=== PATIENT | female | born 1970 | race Caucasian/White ===

== ENCOUNTER → 2019-08-23 09:01 | Outpatient (CLI) | payer SELFPAY ==
--- NOTE | 2019-08-22 15:15 | EMB_PTH ---
PATIENT: DEMOND STEIN LOC: [facility] U#:[id number] AGE/SX: 54/F ROOM: RE08/23/[address]: Dr. Wojciech Dubon MD : 1970 BED: DIS: SPEC #: [id number] RECD: 08/23/19 08:54 STATUS: MARA FANNIE #: [id number] ABDULAZIZ: 08/22/19 15:[address]: Wojciech Dubon DEPT: SURGICAL PATHOLOGY RECD BY: Poli Enriquez Tissues: Endometrium, NOS Procedures: Surgery Specimen Level IV HEADER OPERATION: Endometrial biopsy PRE-OP DIAGNOSIS: N92.6 TISSUE SUBMITTED: Endometrial biopsy MICROSCOPIC DIAGNOSIS Endometrium, biopsy: Strips of benign superficial endometrium and endocervix. AM:ayaan 08/24/19 MICROSCOPIC DESCRIPTION Slides are reviewed. GROSS DESCRIPTION Received in fixative is one container labeled with the patient's name and designated EM biopsy. The specimen consists of multiple fragments of hemorrhagic soft tissue mixed with mendoza mucoid tissue that in aggregate measure 3 x 2.5 x 0.3 cm. The specimen is totally submitted in one cassette. / SJ:rg 08/23/19 TC:5 CPT: 29291
[2019-08-25 20:29] LABS: HPV Reflexed? NOT INDICATED
== END ==
PROVIDERS: Referring Provider Obstetrics & Gynecology; Visit Provider Obstetrics & Gynecology
DX: N92.6 Irregular menstruation, unspecified (principal); Z12.4 Encounter for screening for malignant neoplasm of cervix
CPT/HCPCS: 88175; 88305; G0145

== ENCOUNTER 2020-03-04 08:54 | Day surgery (SDC) | payer SELFPAY, OTHER ==
[2020-02-29 17:15] LABS: Hematocrit 29.2 % (37-47); Hemoglobin 8.8 g/dL (12.0-15.0); Mean Corp Hgb Conc 30.1 g/dL (32-36); Mean Corpuscular Hgb 28.5 pg (27.0-32.0); Mean Corpuscular Volume 94.5 fL (81-99); Mean Platelet Vol. 8.5 fl (6.2-12.0); Platelet Count 293 K/mm3 (150-450); RBC Distribution Width CV 16.6 % (11.6-14.6); RBC Distribution Width SD 54.5 fl (35.1-43.9); Red Blood Count 3.09 M/mm3 (4.2-5.4)
[2020-02-29 17:42] LABS: Creatinine, Serum 0.79 mg/dL (0.55-1.02); EST Glomerular Filtration Rate 81 mL/min (>60); Est Glom Filt Rate - Afr Amer 98 mL/min (>60)
[2020-02-29 17:43] LABS: International Normalized Ratio 1.1; Prothrombin Time (Protime)PT. 13.7 SECONDS (11.7-14.9)
[2020-02-29 17:44] LABS: Partial Thromboplast Time 32.8 Seconds (24.1-36.2)
[2020-02-29 17:45] LABS: hCG Titer Quant., Serum < 1 mIU/mL (1-3)
--- NOTE | 2020-03-03 21:05 | PCM.HP.BLA ---
History and Physical Date of Admission: 03/04/20 Surgical History and Physical Kathie Flores, a 49 year old female 4 0 3 0 4, presents for RAVH/BSO on March 04, 2020 at 10:30. -- Menorrhagia; Prolonged Menses; Blood Loss Anemia -- Kathie presents with concerns regarding heavy bleeding with clots that started 02/16/20 and continues. 49 y.o. G 7 P 4 non-smoker with history of BTO for control with LMP of 02-20-20 and reports that she had period in lasting three weeks then nothing. Adds she is very weak and fatigued and taking an OTC Iron supplement. Very dizzy to the point she did not function well and even woke up feeling like that. Continues taking her Iron two bid as previously. Hgb to 7.5 recently. Bleeding occurs all the time. It is located in the vagina. It is located in the lower abdomen. Kathie characterizes it to be non-radiating. Kathie characterizes the quality hemorrhage. Severity is moderate and not improving and very concerned; Associated signs and symptoms are known fibroids. Additional comments are: Wants Hysterectomy.; Additional comments are: EMBx 6 months ago ok. MEDICATIONS HISTORY: ALLERGIES: No Known Drug Allergies Infections - Chicken pox childhood Illnesses - no serious past illnesses Accidents - None Hospitalizations - Childbirth and see surgery Review of Systems: GENERAL - fatigue and weakness SKIN - Denies skin changes EYES - Denies visual changes EARS - Denies difficulty hearing NOSE - Denies nasal congestion or bleeding MOUTH - Denies sore throat or difficulty swallowing NECK - Denies pain or swelling RESPIRATORY - Denies shortness of breath or wheezing CARDIOVASCULAR - Denies palpitations or chest pain GASTROINTESTINAL - Denies nausea, vomiting, diarrhea, constipation GENITOURINARY - Denies dysuria, frequency of urination, incontinence of urine MUSCULOSKELETAL - Denies joint or muscle pain NEUROLOGICAL - Denies localized numbness or weakness PSYCHIATRIC - Denies depression or anxiety ENDOCRINE - Denies heat or cold intolerance, weight loss or gain HEMATO-IMMUNOLOGIC - Denies excesive bleeding with cuts SOCIAL HISTORY: Alcohol Use - denies drinking Smoking - denies smoking Diet - no special diet Lifestyle - moderate stress lifestyle and Exercise - minimal Seat Belt Use - occasional Employer - Unemployed Job Description - Housewife Illicit Drug Use - denies use of street drugs Sexual Activity - Spouse-Sig Other Name - Akira Spouse-Sig Other Occupation - [employer] Children Name(s) - 4 children Control - Prior Tubal FAMILY HISTORY: MENSTRUAL HISTORY: LMP Known?- YesAmount/Duration - excess amount, Regularity - missed periods, Frequency - variable days, LMP - 02/20/20 PAST PREGNANCIES: Total Pregnancies - 7; Full Term Pregnancies - 4; Premature - 0; Abortions, Induced - 0; Abortions, Spontaneous - 3; Ectopics - 0; Multiple Births - 0; Living Children - 4 SURGICAL HISTORY: 1. 05/25/1990 2. 11/26/1992 3. 10/27/1996 4. 01/17/1999 PHYSICAL EXAM BP- 132/86 Sitting, Right arm, regular cuff Weight- 174.0 lbs Height- 61 inch BMI:32.95 CONSTITUTIONAL - NAD, well nourished, and well developed SKIN - No rash, lesions, or ulcers HEENT - Normocephalic, PERRLA, EOMI NECK - No nodes, no nuchal rigidity and thyroid normal size and texture LYMPH NODES - Palpation of lymph nodes in neck and groins within normal limits LUNGS - CTA x2 without wheezes, crackles or rales CARDIAC - Regular rate and rhythm without rubs, murmurs, or gallops ABDOMEN - Without hepatosplenomegaly, distention, masses, rebound, or guarding; normal bowel sounds; no hernias EXTREMITIES - No edema or calf tenderness NEUROLOGICAL - Cranial nerves II-XII grossly intact PSYCHIATRIC - A and O to time, place, person, mood and affect DETAILED PELVIC EXAM External Genital Vagina - non-tender without lesions Urethra/Urethral Meatus - non-tender Bladder - non-tender Vagina - vaginal jha are pink and moist without loss of rugae and no evidence of atropy Cervix - without cervical motion tenderness and has normal size and features without evident lesions Uterus - multiparous size 6 cm & wt 75-125 g Adnexa - clear without masses or tenderness ASSESSMENT/PLAN: 1. Leiomyoma Of Uterus, Unspecified and Premenopause Menorrhagia EMBx ok 6 months ago. Possibly from dyssyncronous bleeding from HRT or from uterine fibroids. Discussed options for treatment and desires proceeding with RAVH/BS. Discussed RBAs and all questions answered. Essential Procedure Criteria Procedure Essential: Yes Criteria Note: On 01/23/2020 the [facility] ([facility]) Public Order signed by [facility] Director Nadine Glover M.D., regarding the Management of Non-Essential Surgeries and Procedures for the purpose of preserving Personal Protective Equipment (PPE) and critical hospital capacity and resources within [place] went into effect as of 01/24/2020 at 5:00PM. According to the [facility] Public Order: This action will remain in full force and effect until the State of Emergency declared by the Governor no longer exists or the Director of the [facility] rescinds or modifies this Order.. This [facility] order stated all non-essential or elective surgeries and procedures that utilize PPE should be delayed unless there is undue risk to the current or future health of a patient. After reviewing the aforementioned [facility] Public Order and the patients clinical case, I have determined that the scheduled procedure meets the criteria to go forward. Risk to Patient if Procedure Delayed: Risk of rapidly worsening to severe symptoms
[2020-03-04] VITALS (15 sets, daily range): BP systolic 93–124; BP diastolic 52–75; PULSE 43–72; RESP 16; TEMP 36.1–36.9; O2SAT 93–100; BMI 32.3
--- NOTE | 2020-03-04 | HYST_PTH ---
PATIENT: DEMOND STEIN LOC: [facility] [place] U#:[id number] AGE/SX: 49/F ROOM: RE03/04/[address]: Dr. Wojciech Dubon MD : 1970 BED: DIS: 03/05/2020 SPEC #: [id number] RECD: 03/04/20 15:13 STATUS: MARA GHOSHShaunna #: [id number] ABDULAZIZ: 03/04/20 00:[address]: Wojciech Dubon DEPT: SURGICAL PATHOLOGY RECD BY: Ru Ayon ENTERED: 03/05/20 12:04 SP TYPE: HYSTERECT OTHR DR: Dr. Guicho Quiñones MD Tissues: Uterus, NOS Procedures: Surgery Specimen Level V HEADER OPERATION: Laparoscopic robotic assisted vaginal hysterectomy PRE-OP DIAGNOSIS: Leiomyoma of uterus and premenopause; menorrhagia TISSUE SUBMITTED: Uterus, bilateral fallopian tubes MICROSCOPIC DIAGNOSIS Uterus and bilateral fallopian tubes, vaginal hysterectomy and bilateral salpingectomy: Cervix - mild chronic inflammation. Endometrium - proliferative endometrium. Myometrium - intramural and subserosal leiomyomas (largest measuring 4 cm in diameter). - focal adenomyosis. Bilateral fallopian tubes - no pathologic diagnosis. SJ:ayaan 03/06/20 COMMENT Please make reference to previous specimen ([id number]) endometrium, biopsy with diagnosis of strips of benign superficial endometrium and endocervix. MICROSCOPIC DESCRIPTION Slides are reviewed. GROSS DESCRIPTION Received in fixative is one container labeled with the patient's name and designated uterus, cervix, bilateral fallopian tube. The specimen consists of a hysterectomy specimen consisting of a uterus, detached cervix and detached bilateral fallopian tubes. The uterus with cervix weighs 108 gm. The cervix measures 4 x 2.5 x 2 cm. The endocervical canal measures 3.5 cm in length. The endocervical mucosa is mendoza, glistening and unremarkable. The uterus measures from fundus to resection margin 6 cm transversely and 5 cm anterior-posteriorly. The serosal surface is mendoza, glistening. The endometrial cavity is saucer-shaped and measures 5 cm in length and up to 4 cm in width. The endometrium is mendoza, glistening without any mass lesion and measures 0.1 cm in thickness. Sections of the uterine wall reveal a large submucosal nodular mass filling the endometrial cavity measuring 4 cm in diameter. Two smaller nodular masses are also noted measuring 0.5 and 0.7 cm in diameter. Sections of these masses reveal mendoza whorled cut surfaces without areas of hemorrhage, necrosis or cystic degeneration. The uterine wall measures up to 1.5 cm in thickness. The fallopian tubes are not identified as right or left. One of the fallopian tubes measures 3 cm in length and 0.5 cm in diameter. The fimbrial end is identified. Sections reveal unremarkable cut surfaces. The second fallopian tube measures 2.5 cm in length and 0.5 cm in diameter. Sections reveal unremarkable cut surfaces. The fimbrial end is identified. Treating Engineer sections are submitted in 11 cassettes as follows: 1 - anterior cervix, 2 - posterior cervix, 3 & 4 - anterior uterine wall, 5 & 6 - posterior uterine wall, 7-9 - nodular masses (7 & 8 - largest nodular mass, 9??smaller nodular masses), 10 & 11 - bilateral fallopian tubes, each containing one fallopian tube. / ROS:ayaan 03/05/20 TC:1 CPT: 09094
--- NOTE | 2020-03-04 09:08 | EKG12_ITS ---
Test Reason : PRE OP Blood Pressure : / mmHG Vent. Rate : 059 BPM Atrial Rate : 059 BPM P-R Int : 136 ms QRS Dur : 084 ms QT Int : 412 ms P-R-T Axes : 057 033 025 degrees QTc Int : 407 ms Sinus bradycardia Otherwise normal ECG No previous ECGs available Confirmed by TRAVON JOHNSON ([id number]), web content editor WHIT JOSEPH ([id number]) on 03/08/2020 10:35:36 AM Referred By: Wojciech Dubon Confirmed By:TRAVON JOHNSON
[2020-03-04 09:32] LABS: Hemoglobin 10.4 g/dL (12.0-15.0)
[2020-03-04 09:48] LABS: Internal QC Validated? YES +Cl - CLEAR BKGD
[2020-03-04 09:51] LABS: Pregnancy, Serum, hCG Quali. NEGATIVE Negative
[2020-03-04] MEDS: Lactated Ringers 1,000 ML 100 ML IV ×2 (09:55→10:00)
[2020-03-04] MEDS: Ropivacaine 0.5% 30 ML Vial (11:45)
--- NOTE | 2020-03-04 13:34 | PCM.OPRPT ---
Report of Operation Date of Procedure: 03/04/20 Pre-Operative Diagnosis: Menorrhagia, Uterine Fibroids, Blood Loss Anemia Post-Operative Diagnosis: Menorrhagia, Uterine Fibroids, Blood Loss Anemia, Adhesions Surgery/Procedure Performed:: Robotic Assisted Vaginal Hysterectomy, Bilateral Salpingectomy, Lysis of Adhesions Description of Surgical Findings:: 10 cm fibroid uterus with normal-appearing fallopian tubes and ovaries. Evidence of prior bilateral tubal occlusion. Dense adhesions of the omentum to the anterior abdominal wall from the umbilicus to the bladder. Adhesions of the sigmoid colon to the posterior aspect of the uterus. cost accounting manager: Mimi Yoo Type of Anesthesia:: General - Endotracheal Anesthesiologist: Felecia Payne Specimen's removed: Uterus and bilateral fallopian tubes Drains: Ackerman to straight drain Estimated Blood Loss (mL): Minimal Fluids Replaced: Crystalloid Description of Procedure: Surgeon: Wojciech Dubon MD, FACOG Indication: This is a 49 year old patient who has been having problems with extremely heavy periods and blood loss anemia. Conservative measures have not been helpful. The patient has been counseled regarding the risks, benefits and alternatives of this procedure including the possibility of bleeding, infection, and injury to surrounding structures such as bowel bladder and all questions were answered. She understands that if BSO is needed that she will need to be on HRT for an indefinite period of time. Procedure: Pt taken to the operating room where, after induction of general anesthesia, the patient was prepped and draped in the usual sterile fashion and placed on a non-slip Huggy-u-vac device. Trendelenburg test was satisfactory. Bladder was drained of urine with a Ackerman catheter which was left in place. Anterior cervix grasped and cervix was dilated to about 3-4 mm. Uterus sounded to 10 cms. 0-Vicryl suture was placed at the 3:00 and 9:00 position of the cervix. A small Advincula Vet Assistant Uterine Manipulator was then placed in the uterus and attention was turned to the laparoscopic portion of the procedure. Ropivocaine 0.5% was injected approximately 2-3 cm superior to the umbilicus and an 8 mm robotic camera port was introduced directly with intraperitoneal placement confirmed with CO2 insufflation. 8 mm robotic side ports were introduced under direct visualization approximately 11 cm lateral and 2 cm inferior to the umbilical port. A 5 mm left upper quadrant port was introduced and airseal insufflation with CO2 was started. The above findings were noted. Robot was docked without difficulty and attention turned to the robotic portion of the procedure. Approximately 30 cc of Ropivicaine was used. Adhesions were taken down with bipolar and monopolar scissors to the level of the bladder. Adhesions were also removed from the posterior aspect of the uterus with monopolar scissors and blunt dissection. Bilateral infundibulopelvic ligaments/mesosalpinx were ligated with 35 barrios bipolar coagulation to the level of the round ligament leaving the distal portion of the fallopian tubes in place. The posterior aspect of the cervix was identified and then opened for about 1 cm using 25 watt monopolar cautery. Bladder flap was opened and divided to the level of the round ligaments using monopolar cautery ligating dense adhesions the entire way. Progressive bites were then ligated on each side of the cervix with 35 barrios bipolar cautery to the uterine arteries. The anterior vaginal mucosa was entered and cervix circumscribed with monopolar cautery. Uterus and attached tubes were removed through the vagina. Cautery was used to remove the distal fallopian tubes and these were also brought through the vagina with a ring forcep. Vaginal cuff was closed first with 0-Vicryl Nakia stitches placed at each angle followed by closure of the mid-cuff with 0-Monocryl V-lock suture in two layers. Pelvis was copiously irrigated with saline and the right and left ureter was noted to peristalse. Omentum was examined and noted to be hemostatic where adhesions had been taken down. Robot was undocked and trocars were removed with as much gas as possible. Incisions were closed with 4-0 Monocryl subcuticular sutures and incisions covered with steri-strips. The patient tolerated the procedure well and was taken to the recovery room in satisfactory condition. Sponge, instruments and needle counts were all correct. There were no apparent complications of the surgery. Cefotan 2 gms IV was given prior to the procedure. Estimated Blood Loss: Minimal Specimen to Pathology: Uterus and bilateral fallopian tubes Grafts/Implants Used: None - Complications None - Admit VTE Documentation VTE Present on Admission: Yes VTE Mechan Device Prophylaxis: SCD's VTE Pharm Prophylaxis ordered?: Yes
--- NOTE | 2020-03-04 13:41 | PCM.DC.VHY ---
Discharge Diet: No Restrictions Discharge Activity: Return to Normal Activity, May Not Drive - while taking narcotic pain medications., May Shower, May Take a Tub Bath May resume sexual activity in: 6-8 weeks Call your doctor if your incision/area has: Continuous Slow Oozing, Sudden Increased Bleeding, Increased Pain/ Swelling, Increased Redness, Foul Smelling Discharge Call your doctor if you observe: Fever of 101 or Higher, Inability to urinate, Inability to have a bowel movement, Using more than one pad per hour Allergies/Adverse Reactions: Allergies No Known Allergies Allergy (Verified 03/01/20 08:07) Medications to take at Discharge Ascorbic Acid [Vitamin C] 1,000 mg PO DAILY 03/01/20 Ferrous Sulfate, Dried [Iron] 54 mg PO BID 03/01/20 Hormone Supplement 1 cap PO DAILY 03/01/20 L.acidoph,Paracasei, B.lactis [Probiotic] 1 ea PO DAILY 03/01/20 Docusate Sodium [Colace] 100 mg PO BID PRN PRN #60 cap 03/04/20 Oxycodone [Oxyir] 5 mg PO Q6H PRN PRN 7 Days #20 tab 03/04/20 The following prescriptions were given: Docusate Sodium [Colace] 100 mg PO BID PRN PRN #60 cap PRN Reason: Constipation Transmission Status: Received by [id number] Oxycodone [Oxyir] 5 mg PO Q6H PRN PRN 7 Days #20 tab PRN Reason: Pain Score 6-10/10 Transmission Status: Received by [id number] Primary Care Physician: Guicho Quiñones MD [Primary Care Provider] - Test Results: Test results from this visit will be discussed in further detail at your follow-up appointment, if applicable. Please Follow Up With: Wojciech Dubon MD When: 2 to 3 weeks
[2020-03-04] MEDS: 0.9% Normal Saline 500 ML IV.SOLN. IV (15:45)
[2020-03-04] MEDS: Ondansetron 4 MG/2 ML Vial IV ×2 (17:02→21:23)
[2020-03-04] MEDS: Dextrose 5%-Lactated Ringers 1,000 ML 150 ML IV (17:05)
--- NOTE | 2020-03-04 17:49 | CPS ---
SMI AT BEDSIDE...PT SLEEPING
[2020-03-04] MEDS: Ketorolac 30 MG/ML Syringe IV (19:59)
[2020-03-04] MEDS: Enoxaparin 30 MG/0.3 ML Syringe SC (20:00)
[2020-03-04] MEDS: 0.9% Saline Lock 10 ML Syringe IV (21:49)
[2020-03-05] MEDS: Dextrose 5%-Lactated Ringers 1,000 ML 150 ML IV (00:22)
[2020-03-05] MEDS: Acetaminophen 500 MG Tablet 1000 MG PO ×2 (00:26→15:34)
[2020-03-05 02:49] VITALS: BP 112/55; PULSE 71; RESP 16; TEMP 37.3; O2SAT 95
[2020-03-05] MEDS: Ketorolac 30 MG/ML Syringe IV (02:51)
[2020-03-05 05:37] VITALS: BP 104/49; PULSE 66; RESP 16; TEMP 36.8; O2SAT 93
[2020-03-05] MEDS: Ketorolac 10 MG Tablet PO ×2 (05:39→11:28)
[2020-03-05] MEDS: 0.9% Saline Lock 10 ML Syringe IV (05:46)
[2020-03-05 06:17] LABS: Hematocrit 26.8 % (37-47); Hemoglobin 8.1 g/dL (12.0-15.0); Mean Corp Hgb Conc 30.2 g/dL (32-36); Mean Corpuscular Volume 92.7 fL (81-99); Mean Platelet Vol. 8.3 fl (6.2-12.0); Platelet Count 220 K/mm3 (150-450); RBC Distribution Width CV 14.7 % (11.6-14.6); RBC Distribution Width SD 49.8 fl (35.1-43.9); Red Blood Count 2.89 M/mm3 (4.2-5.4); White Blood Count 8.2 K/mm3 (4.4-11.0)
[2020-03-05 06:41] LABS: EST Glomerular Filtration Rate 70 mL/min (>60); Est Glom Filt Rate - Afr Amer 85 mL/min (>60)
[2020-03-05 07:55] VITALS: O2SAT 90
--- NOTE | 2020-03-05 08:30 | PN.OBGYN_ITS ---
Subjective: Patient without complaints. Pain well controlled. Some nausea last evening but has resolved. Positive flatus. Denies able to void yet on own but Ackerman catheter is out. Objective: Wounds are clean, dry, intact. Good urine output. Hemoglobin and creatinine okay. - Physical Exam Vitals/I&O's: Vital Signs Temp Pulse Resp BP Pulse Ox 98.2 F 66 16 104/49 L 93 03/05/20 05:37 03/05/20 05:37 03/05/20 05:37 03/05/20 05:37 03/05/20 05:37 Oxygen Flow Rate (L/min) 1 Oxygen Delivery Method Room Air Weight: 170 lb 13.732 oz Body Mass Index (BMI) 32.3 Intake and Output for Last 24 Hours 03/03/20 03/04/20 03/05/20 23:59 23:59 23:59 Intake Total 3175 / 3275 1260 / 1260 Output Total 375 / 575 1075 / 1075 Balance 2800 / 2700 185 / 185 Laboratory Results 03/04/20 09:20: Hgb 10.4 L, Hct 35.0 L 03/04/20 09:20: Serum , Qual NEGATIVE 03/05/20 06:03: WBC 8.2, RBC 2.89 L, Hgb 8.1 L, Hct 26.8 L, MCV 92.7, MCH 28.0, MCHC 30.2 L, RDW Std Deviation 49.8 H, RDW Coeff of Rocío 14.7 H, Plt Count 220, MPV 8.3 03/05/20 06:03: Creatinine 0.90, Estim Creat Clear Calc 55.80, Est GFR (MDRD) Af Amer 85, Est GFR (MDRD) Non-Af 70 Current Medications Acetaminophen (Tylenol) 1,000 mg PO Q8H PRN PRN PRN Reason: Pain Score 1-3/10 or Fever Last Admin: 03/05/20 00:26 Dose: 1,000 mg Documented by: Docusate Sodium (Colace) 100 mg PO BID PRN PRN PRN Reason: CONSTIPATION Hydromorphone HCl (Dilaudid Inj) 0.5 mg IV Q3H PRN PRN PRN Reason: Pain Score 4-10/10 Sodium Chloride () 250 mls @ 15 mls/hr IV .[id number] PRN PRN Reason: Saline Flush Last Infusion: 03/04/20 23:38 Dose: 0 mls/hr Documented by: Sodium Chloride () 250 mls @ 15 mls/hr IV .[id number] PRN PRN Reason: Additional IVPB Infusion Ketorolac Tromethamine (Toradol) 10 mg PO Q6H [facility] Stop: 03/09/20 20:01 Last Admin: 03/05/20 05:39 Dose: 10 mg Documented by: Ondansetron HCl (Zofran) 4 mg IV Q4H PRN PRN PRN Reason: NAUSEA Last Admin: 03/04/20 21:23 Dose: 4 mg Documented by: Oxycodone HCl (Oxyir) 5 mg PO Q4H PRN PRN PRN Reason: Pain Score 4-10/10 Simethicone (Mylicon) 80 mg PO [facility] Last Admin: 03/04/20 21:53 Dose: 80 mg Documented by: Sodium Chloride () 10 - 40 ml IV UD PRN PRN Reason: SALINE FLUSH Last Admin: 03/05/20 05:46 Dose: 10 ml Documented by: Medical Necessity - Tobacco Use Smoking Status: Never smoker Tobacco Use: Non-smoker Assessment/Plan Doing well postoperative day #1 status post robotic assisted vaginal hyster ectomy and bilateral salpingectomy. Will release to home later today when able to void on own. Continue iron at home.
[2020-03-05 09:50] VITALS: BP 109/56; PULSE 66; RESP 18; TEMP 36.6; O2SAT 94
== END 2020-03-05 15:54 | disposition home or self-care (01) ==
LOC: SDC 08:59 → AC 09:00 → MS3 12:37
PROVIDERS: Referring Provider Obstetrics & Gynecology; Visit Provider Obstetrics & Gynecology
PROC: 0UT94ZZ Resection of Uterus, Percutaneous Endoscopic Approach (ICD-10-PCS; CPT 58571; principal; 2020-03-04 10:10)
DX: D25.1 Intramural leiomyoma of uterus (principal); D25.2 Subserosal leiomyoma of uterus; D50.0 Iron deficiency anemia secondary to blood loss (chronic); N92.0 Excessive and frequent menstruation with regular cycle
CPT/HCPCS: 00840; 58571; S2900; 36415; 82565; 84702; 84703; 85014; 85018; 85027; 85610; 85730; 86850; 86900; 86901; 88307; 93005; 99251; J7030; J7040; J7050; J7120; A4216; G0463; J2405